=== PATIENT | male | born 1935 | race Caucasian/White ===

== ENCOUNTER → 2017-07-25 | Outpatient (CLI) | payer MEDICARE ==
[~2017-07-25] MED LIST: ACARBOSE50 MG PO; ACTOS45 MG PO; CALCIUM 600 +1 EAC7 PO; CLINDAMYCIN HC150 MG PO; ELIQUIS PO; FERROUS GLUCON324 M1 PO; FLUCONAZOLE100 MG PO; GLIPIZIDE10 MG PO; HYDROCHLOROTHIA25 MG PO; IRON PO; LOSARTAN POTAS100 MG PO; LOSARTAN POTASS50 MG PO; METFORMIN HCL850 MG PO; MINOCYCLINE HCL50 MG PO; NIASPAN750 MG PO; VITAMIN C PO; VITAMIN D2000 UNIT PO; ZETIA10 MG PO; ZYVOX600 MG PO
--- NOTE | 2017-07-25 10:48 | Diagnostic Imaging Report ---
PROCEDURE:ABDOMINAL ULTRASOUND COMPARISON:None. INDICATIONS:R/O ANEURYSM, ABDOMINAL PAIN FINDINGS: Liver: 14.9 cm in length in the right midclavicular line. Normal hepatic parenchymal echogenicity. No focal mass. Main portal vein: 1.2 cm in caliber. Hepatopedal flow. Gallbladder: Unremarkable in sonographic appearance without shadowing calculus, wall thickening, or pericholecystic fluid. Common Bile Duct: 0.2 cm in caliber. No echogenic filling defect. Sonographic Finney's sign: Reported as negative. Right kidney: 11.8 cm in length. No solid mass, echogenic calculi, or hydronephrosis. Exophytic simple cyst projects from the lateral pole and measures 5.5 x 5 x 5.6 cm. Normal parenchymal echogenicity. Left kidney: 10.5 cm in length. No solid or cystic mass, echogenic calculi, or hydronephrosis. Normal parenchymal echogenicity. Spleen: 9.7 cm in length. Pancreas: The visualized portions of the pancreas are normal. Inferior vena cava: Patent. Aorta: Poorly visualized secondary to overlying bowel gas. Ascites: None. CONCLUSION: Poor visualization of the abdominal aorta secondary to overlying bowel gas. If there is strong clinical concern for abdominal aortic aneurysm, CT angiography of the abdomen and pelvis is suggested. Benign simple right renal cyst. Dictated by: Peyman Hu M.D. on 07/25/2017 at 10:49 Electronically approved by: Peyman Hu M.D. on 07/25/2017 at 10:49
== END ==
LOC: US 08:15
DX: R10.9 Unspecified abdominal pain (principal)
CPT/HCPCS: 76700

== ENCOUNTER → 2017-08-12 | Outpatient (CLI) | payer MEDICARE ==
[~2017-08-12] MED LIST changes: +IOPAMIDOL 370 MG/ML 200 ML INFUS..BTL INJ ONE; +SODIUM CHLORIDE 0.9% 250ML 500 ML ONE; +SODIUM CHLORIDE 0.9% 50ML 50 ML ONE
[2017-08-12 10:32] LABS: CREATININE, SERUM 1.42 mg/dL (0.72-1.25)
--- NOTE | 2017-08-12 13:06 | Diagnostic Imaging Report ---
EXAM: CTA Chest Abdomen, and Pelvis WITH contrast INDICATION: COMPARISON: None. TECHNIQUE: Angiogram of the Chest, Abdomen, and Pelvis was scanned utilizing a multidetector helical scanner after administration of IV contrast. Coronal and sagittal reformations were obtained. IV CONTRAST: 100 mL Isovue-370 COMPLICATIONS: None RADIATION DOSE: Total DLP: 1851 mGy*cm Estimated effective dose: (DLP x 0.015 x size factor) mSv CTDIvol has been reviewed. It is below the limits set by the Radiation Protocol Committee (RPC). FINDINGS: VASCULAR: Aortic Annulus: 26 mm. Sinus of Valsalva: 41 mm. Ascending Aorta at level of PA: 36 mm. Mid Arch: 33 mm. Proximal Descendin mm. Mid Descendin mm. Distal Descendin mm. Other: Moderate aortic atherosclerotic changes with no dissection. Abdominal Aorta Mesenteric Segment: 24 mm. Abdominal Aorta Just Below Renal Arteries: 21 mm. Mid Infrarenal Abdominal Aorta: 20 mm. Abdominal Aortal at Bifurcation: 17 mm. Mesenteric Arteries: Celiac trunk, SMA, single right, and dual left renal arteries patent with mild to moderate atherosclerotic changes. RCIA: 14 mm. LCIA: 15 mm. Internal Iliac Arteries: Mild to moderate adverse chronic changes, and iliac, external iliac, and internal iliac arteries. Right internal iliac artery diminutive. Chest: Lower Neck: The visualized thyroid gland is grossly unremarkable with no suspicious or significant nodule identified. Heart and Great Vessels: The main pulmonary artery measure 31 mm. The cardiothoracic radio measures 14/31. No pericardial effusion. No pulmonary embolus identified. No intracardiac filling defect is present. Mild to moderate coronary artery vascular calcifications. Lymph Nodes: No suspicious adenopathy. Calcified subcarinal/parasellar Simran nodes. Lungs: Trachea and central bronchi are unremarkable. There is no pneumothorax or pleural effusion. Calcified granulomata present, largest medial aspect right lower lobe. 2 mm nodule right upper lobe series 6 image 30 and 41. Granuloma right axial image 38. Abdomen: Solid Organs: Calcified gallstones present with no evidence of inflammation. Cysts are present in the kidneys, largest right 60 mm. Splenic granulomata are present. Solid organs otherwise unremarkable. Upper GI Tract: Gastric decompression limits adequate evaluation. No small bowel obstructive changes. Lymph Nodes: No suspicious adenopathy. Other: None. Pelvis: Bladder: Unremarkable. Other: Calcified injection granulomata. Colon: Colonic diverticula scattered, with no CT evidence of diverticulitis. Appendix not inflamed. Bones: Degenerative changes spine. IMPRESSION: 1. No aortic aneurysm or dissection identified in the chest or abdomen. 2. No pulmonary and was. 3. Evidence prior granulomatous disease. 4. Diverticulosis. 5. Cholelithiasis. 6. See above for further details. Signed by: Dr. Frank Reeves MD on 08/12/2017 1:03 PM
--- NOTE | 2017-08-12 13:07 | Diagnostic Imaging Report ---
EXAM: CTA ABD/PELVIS DATE: 08/12/2017 9:48 AM INDICATION: \S\HYPERTENSION / DIABETES COMPARISON: None FINDINGS: Please see concomitant CT angiogram of the chest, abdomen, and pelvis. IMPRESSION: As above. Signed by: Dr. Frank Reeves MD on 08/12/2017 1:03 PM
== END ==
LOC: CT 09:36
DX: C61 Malignant neoplasm of prostate (principal)
CPT/HCPCS: 36415; 71275; 74174; 82565; 84520; J7050; Q9967

== ENCOUNTER → 2017-08-20 | Outpatient (CLI) | payer MEDICARE ==
[~2017-08-20] MED LIST changes: -IOPAMIDOL 370 MG/ML 200 ML INFUS..BTL INJ ONE; -SODIUM CHLORIDE 0.9% 250ML 500 ML ONE; -SODIUM CHLORIDE 0.9% 50ML 50 ML ONE
--- NOTE | 2017-08-20 10:25 | Diagnostic Imaging Report ---
Testicular ultrasound, 08/20/2017 Clinical history: Atrophy of the testicle. Right scrotal pain. Comparison: August 25, 2014 Technique: Flores scale, color Doppler and spectral Doppler ultrasound and waveform analysis of the arterial and venous system. Findings: Right: 3.6 x 1.6 x 2.5 cm Left: 3.3 x 1.6 x 2.7 cm Both testicles demonstrate normal arterial and venous waveforms. Echogenicity is symmetric. A 0.4 x 0.3 x 0.3 cm hyperechoic focus in the mid right testicle is unchanged from the comparison study. Right epididymis: 0.9 x 0.6 x 1.4 cm Left epididymis: 0.8 x 0.6 x 0.9 cm Inguinal canal vascular structures are normal. No conspicuous hydrocele or varicocele. Impression: 1. No acute abnormality. 2. Stable hyperechoic focus in the right testicle, likely benign scar. This report was generated with voice-recognition technology. Errors in drier tender naphthalene can occur. Please interpret accordingly and contact a radiologist if there are any questions regarding the report. Signed by: Dr. Luis Gonzalez M.D. on 08/20/2017 10:21 AM
--- NOTE | 2017-08-20 10:25 | Diagnostic Imaging Report ---
Testicular ultrasound, 08/20/2017 Clinical history: Atrophy of the testicle. Right scrotal pain. Comparison: August 25, 2014 Technique: Flores scale, color Doppler and spectral Doppler ultrasound and waveform analysis of the arterial and venous system. Findings: Right: 3.6 x 1.6 x 2.5 cm Left: 3.3 x 1.6 x 2.7 cm Both testicles demonstrate normal arterial and venous waveforms. Echogenicity is symmetric. A 0.4 x 0.3 x 0.3 cm hyperechoic focus in the mid right testicle is unchanged from the comparison study. Right epididymis: 0.9 x 0.6 x 1.4 cm Left epididymis: 0.8 x 0.6 x 0.9 cm Inguinal canal vascular structures are normal. No conspicuous hydrocele or varicocele. Impression: 1. No acute abnormality. 2. Stable hyperechoic focus in the right testicle, likely benign scar. This report was generated with voice-recognition technology. Errors in concaving machine operator can occur. Please interpret accordingly and contact a radiologist if there are any questions regarding the report. Signed by: Dr. Luis Gonzalez M.D. on 08/20/2017 10:21 AM
== END ==
LOC: US 08:22
PROVIDERS: ATTEND Urology
DX: N50.0 Atrophy of testis (principal)
CPT/HCPCS: 76870; 93976

== ENCOUNTER → 2018-12-03 | Outpatient (CLI) | payer MEDICARE ==
[~2018-12-03] MED LIST changes: +GADOBENATE DIMEGLUMINE 1 ML IV ONE
[2018-12-03 09:15] LABS: CREATININE, SERUM 1.44 mg/dL (0.72-1.25)
--- NOTE | 2018-12-03 16:27 | Diagnostic Imaging Report ---
EXAM: BONE and/or JOINT WHOLE BODY INDICATION: C61 Malignant neoplasm of prostate COMPARISON: Bone scan 01/05/2015 (report only, no images); MRI pelvis 11/23/2018; CT abdo/pelvis 08/12/2017 REPORT: Approximately 3 hours following intravenous administration of 26 mCi of Tc-99m MDP, delayed total body images in the anterior and posterior projections and selected spot images were obtained. A focus of moderately increased tracer activity is seen in the right skull posterior to the mastoid. Small foci of mildly increased tracer activity are seen on the left side of T9 and T10. Otherwise, distribution of tracer activity is unremarkable throughout the skeletal system. No abnormal accumulation of tracer is seen in the soft tissues or urinary tract. The kidneys are reduced in size. IMPRESSION: No convincing scan evidence of metastatic bone disease. Osteoblastic lesion in the right skull posteriorly is nonspecific and would be an unusual site for a solitary bone metastasis related to prostate cancer. The osteoblastic foci in T8 and T9 are suspect for degenerative change, although per reports of bone scan in 2013, were not present at that time. Correlation of the these findings with CT is warranted. Signed by: Dr. Gema Alonso M.D. on 12/03/2018 4:24 PM
--- NOTE | 2018-12-09 18:18 | Diagnostic Imaging Report ---
EXAMINATION: MRI of the pelvis with and without contrast. TECHNIQUE: Multiplanar, multi-sequence MR images of the pelvis were performed from below the inferior poles of the kidneys to the lesser trochanters before and after the intravenous administration of 20 cc of gadolinium. Axial and coronal T1 postcontrast images were performed. COMPARISON: CT abdomen and pelvis 08/12/2017 CLINICAL HISTORY: Malignant neoplasm of prostate, evaluate extent of cancer. Prostate biopsy performed 12/2014. Bilateral pelvic lymphadenectomy 02/2015. Photoselective vaporization of the prostate 04/2015 FINDINGS: BLADDER: Bladder is unremarkable. No focal lesions or wall thickening. PROSTATE: No definite enhancing soft tissue in the prostate bed. Postsurgical changes consistent with prior vaporization. GI TRACT: Rectum and mesorectum are unremarkable. Visualized bowel shows no dilation or evidence of obstruction. PERITONEUM/RETROPERITONEUM: No free fluid. LYMPH NODES: No pelvic or inguinal adenopathy. BONES: No abnormal bone marrow signal. No focal bony lesions. SOFT TISSUES: Soft tissues are unremarkable. IMPRESSION: 1. No evidence of local, recurrent or metastatic disease in the pelvis. No adenopathy. Signed by: Dr. Lito Blackwood M.D. on 12/09/2018 6:15 PM
== END ==
LOC: MRI 08:16
PROVIDERS: ATTEND Urology
DX: C61 Malignant neoplasm of prostate (principal)
CPT/HCPCS: 36415; 72197; 78306; 82565; 84520; A9503; A9577

== ENCOUNTER 2019-04-01 22:56 | Emergency (ER) | payer MEDICARE ==
[~2019-04-01] VITALS: Ht 185.4 cm; Wt 96.2 kg
[~2019-04-01 22:56] MED LIST changes: -GADOBENATE DIMEGLUMINE 1 ML IV ONE
--- OUTSIDE RECORDS SUMMARY | 2019-04-01 22:59 | XMS REPORT ---
Author Author [facility] Address Unknown Phone Unavailable Care Team Providers Care Customer Service Receptionist Name Role Phone CHAR HUMPHRIES Unavailable Unavailable NED FARLEY Unavailable Unavailable Problems This patient has no known problems. Allergies, Adverse Reactions, Alerts This patient has no known allergies or adverse reactions. Medications This patient has no known medications. Results Test Description Test Time Test Comments Text Results Atomic Results Result Comments MRI PELVIS WOW 2018-12-03 17:42:00 [place] [address] Patient Name: HECTOR ARIAS SR MR #: [id number] : 1935 Age/Sex: 83/M Req #: [id number] Adm Physician: Ordered by: CHAR HUMPHRIES MD Report #: [id number] Location: MRI Room/Bed: Procedure: [id number] MRI/MRI PELVIS WOW Exam Date: Exam Time: REPORT STATUS: Signed EXAMINATION: MRI of the pelvis with and without contrast. TECHNIQUE: Multiplanar, multi-sequence MR images of the pelvis were performed from below the inferior poles of the kidneys to the lesser trochanters before and after the intravenous administration of 20 cc of gadolinium. Axial and coronal T1 postcontrast images were performed. COMPARISON: CT abdomen and pelvis 08/12/2017 CLINICAL HISTORY: Malignant neoplasm of prostate, evaluate extent of cancer. Prostate biopsy performed 12/2014. Bilateral pelvic lymphadenectomy 02/2015. Photoselective vaporization of the prostate 04/2015 FINDINGS: BLADDER: Bladder is unremarkable. No focal lesions or wall thickening. PROSTATE: No definite enhancing soft tissue in the prostate bed. Postsurgical changes consistent with prior vaporization. GI TRACT: Rectum and mesorectum are unremarkable. Visualized bowel shows no dilation or evidence of obstruction. PERITONEUM/RETROPERITONEUM: No free fluid. LYMPH NODES: No pelvic or inguinal adenopathy. BONES: No abnormal bone marrow signal. No focal bony lesions. SOFT TISSUES: Soft tissues are unremarkable. IMPRESSION: 1. No evidence of local, recurrent or metastatic disease in the pelvis. No adenopathy. Signed by: Dr. Ramona Blackwood M.D. on 12/09/2018 6:15 PM Dictated By: RAMONA BLACKWOOD MD 14 Transcribed By: JOSE G on 12/09/181814 COPY TO: CHAR HUMPHRIES MD BONE and/or JOINT WHOLE BODY 2018-12-03 16:12:00 [place] [address] Patient Name: HECTOR ARIAS SR MR #: [id number] : 1935 Age/Sex: 83/M Req #: [id number] [facility] Physician: Ordered by: CHAR HUMPHRIES MD Report #: [id number] Location: MRI Room/Bed: Procedure: [id number] NM/BONE and/or JOINT WHOLE BODY Exam Date: 12/03/18 Exam Time: 1030 REPORT STATUS: Signed EXAM: BONE and/or JOINT WHOLE BODY INDICATION: C61 Malignant neoplasm of prostate COMPARISON: Bone scan 01/05/2015 (report only, no images); MRI pelvis 11/23/2018; CT abdo/pelvis 08/12/2017 REPORT: Approximately 3 hours following intravenous administration of 26 mCi of Tc-99m MDP, delayed total body images in the anterior and posterior projections and selected spot images were obtained. A focus of moderately increased tracer activity is seen in the right skull posterior to the mastoid. Small foci of mildly increased tracer activity are seen on the left side of T9 and T10. Otherwise, distribution of tracer activity is unremarkable throughout the skeletal system. No abnormal accumulation of tracer is seen in the soft tissues or urinary tract. The kidneys are reduced in size. IMPRESSION: No convincing scan evidence of metastatic bone disease. Osteoblastic lesion in the right skull posteriorly is nonspecific and would be an unusual site for a solitary bone metastasis related to prostate cancer. The osteoblastic foci in T8 and T9 are suspect for degenerative change, although per reports of bone scan in 2013, were not present at that time. Correlation of the these findings with CT is warranted. Signed by: Dr. Bro Alonso M.D. on 12/03/2018 4:24 PM Dictated By: BRO ALONSO MD 1624 Transcribed By: JOSE G on 12/03/18 1623 COPY TO: CHAR HUMPHRIES MD TESTICULAR DOPPLER LTD [place] [address] Patient Name: HECTOR ARIAS SR MR #: [id number] : 1935 Age/Sex: 82/M Acct #: [id number] Req #: [id number] Adm Physician: Ordered by: CHAR HUMPHRIES MD Report #: [id number] Location: [place] Room/Bed: Procedure: [id number] US/US TESTICULAR DOPPLER LTD Exam Date: 04/04/18 Exam Time: 0908 REPORT STATUS: Signed Testicular ultrasound, 08/20/2017 Clinical history: Atrophy of the testicle. Right scrotal pain. Comparison: August 25, 2014 Technique: Flores scale, color Doppler and spectral Doppler ultrasound and waveform analysis of the arterial and venous system. Findings: Right: 3.6 x 1.6 x 2.5 cm Left: 3.3 x 1.6 x 2.7 cm Both testicles demonstrate normal arterial and venous waveforms. Echogenicity is symmetric. A 0.4 x 0.3 x 0.3 cm hyperechoic focus in the mid right testicle is unchanged from the comparison study. Right epididymis: 0.9 x 0.6 x 1.4 cm Left epididymis: 0.8 x 0.6 x 0.9 cm Inguinal canal vascular structures are normal. No conspicuous hydrocele or varicocele. Impression: 1. No acute abnormality. 2. Stable hyperechoic focus in the right testicle, likely benign scar. This report was generated with voice-recognition technology. Errors in commutator undercutter can occur. Please interpret accordingly and contact a radiologist if there are any questions regarding the report. Signed by: Dr. Aissatou Gonzalez M.D. on 08/20/2017 10:21 AM Dictated By: AISSATOU GONZALEZ MD 1021 Transcribed By: JOSE G on 08/20/17 1021 COPY TO: CHAR HUMPHRIES MD TESTICULAR [place] [address] Patient Name: HECTOR ARIAS SR MR #: [id number] : 1935 Age/Sex: 82/M Req #: [id number] Adm Physician: Ordered by: CHAR HUMPHRIES MD Report #: [id number] Location: US Room/Bed: Procedure: [id number] US/US TESTICULAR Exam Date: 08/20/17 Exam Time: 0908 REPORT STATUS: Signed Testicular ultrasound, 08/20/2017 Clinical history: Atrophy of the testicle. Right scrotal pain. Comparison: August 25, 2014 Technique: Flores scale, color Doppler and spectral Doppler ultrasound and waveform analysis of the arterial and venous system. Findings: Right: 3.6 x 1.6 x 2.5 cm Left: 3.3 x 1.6 x 2.7 cm Both testicles demonstrate normal arterial and venous waveforms. Echogenicity is symmetric. A 0.4 x 0.3 x 0.3 cm hyperechoic focus in the mid right testicle is unchanged from the comparison study. Right epididymis: 0.9 x 0.6 x 1.4 cm Left epididymis: 0.8 x 0.6 x 0.9 cm Inguinal canal vascular structures are normal. No conspicuous hydrocele or varicocele. Impression: 1. No acute abnormality. 2. Stable hyperechoic focus in the right testicle, likely benign scar. This report was generated with voice-recognition technology. Errors in commutator undercutter can occur. Please interpret accordingly and contact a radiologist if there are any questions regarding the report. Signed by: Dr. Aissatou Gonzalez M.D. on 08/20/2017 10:21 AM Dictated By: AISSATOU GONZALEZ MD 1021 Transcribed By: JOSE G on 08/20/17 1021 COPY TO: CHAR HUMPHRIES MD CTA CHEST [place] [address] Patient Name: HECTOR ARIAS SR MR #: [id number] : 1935 Age/Sex: 82/M Req #: [id number] Adm Physician: Ordered by: NED FARLEY MD Report #: [id number] Location: [place] Room/Bed: Procedure: [id number] CT/CTA CHEST Exam Date: 08/12/17 Exam Time: 1123 REPORT STATUS: Signed EXAM: CTA Chest Abdomen, and Pelvis WITH contrast INDICATION: COMPARISON: None. TECHNIQUE: Angiogram of the Chest, Abdomen, and Pelvis was scanned utilizing a multidetector helical scanner after administration of IV contrast. Coronal and sagittal reformations were obtained. IV CONTRAST: 100 mL Isovue-370 COMPLICATIONS: None RADIATION DOSE: Total DLP: 1851 mGy*cm Estimated effective dose: (DLP x 0.015 x size factor) mSv CTDIvol has been reviewed. It is below the limits set by the Radiation Protocol Committee (RPC). FINDINGS: VASCULAR: Aortic Annulus: 26 mm. Sinus of Valsalva: 41 mm. Ascending Aorta at level of PA: 36 mm. Mid Arch: 33 mm. Proximal Descendin mm. Mid Descendin mm. Distal Descendin mm. Other: Moderate aortic atherosclerotic changes with no dissection. Abdominal Aorta Mesenteric Segment: 24 mm. Abdominal Aorta Just Below Renal Arteries: 21 mm. Mid Infrarenal Abdominal Aorta: 20 mm. Abdominal Aortal at Bifurcation: 17 mm. Mesenteric Arteries: Celiac trunk, SMA, single right, and dual left renal arteries patent with mild to moderate atherosclerotic changes. RCIA: 14 mm. LCIA: 15 mm. Internal Iliac Arteries: Mild to moderate adverse chronic changes, and iliac, external iliac, and internal iliac arteries. Right internal iliac artery diminutive. Chest: Lower Neck: The visualized thyroid gland is grossly unremarkable with no suspicious or significant nodule identified. Heart and Great Vessels: The main pulmonary artery measure 31 mm. The cardiothoracic radio measures 14/31. No pericardial effusion. No pulmonary embolus identified. No intracardiac filling defect is present. Mild to moderate coronary artery vascular calcifications. Lymph Nodes: No suspicious adenopathy. Calcified subcarinal/parasellar Simran nodes. Lungs: Trachea and central bronchi are unremarkable. There is no pneumothorax or pleural effusion. Calcified granulomata present, largest medial aspect right lower lobe. 2 mm nodule right upper lobe series 6 image 30 and 41. Granuloma right axial image 38. Abdomen: Solid Orga ns: Calcified gallstones present with no evidence of inflammation. Cysts are present in the kidneys, largest right 60 mm. Splenic granulomata are present. Solid organs otherwise unremarkable. Upper GI Tract: Gastric decompression limits adequate evaluation. No small bowel obstructive changes. Lymph Nodes: No suspicious adenopathy. Other: None. Pelvis: Bladder: Unremarkable. Other: Calcified injection granulomata. Colon: Colonic diverticula scattered, with no CT evidence of diverticulitis. Appendix not inflamed. Bones: Degenerative changes spine. IMPRESSION: 1. No aortic aneurysm or dissection identified in the chest or abdomen. 2. No pulmonary and was. 3. Evidence prior granulomatous disease. 4. Diverticulosis. 5. Cholelithiasis. 6. See above for further details. Signed by: Dr. Frank Reeves MD on 08/12/2017 1:03 PM Dictated By: FRANK REEVES MD 1303 Transcribed By: JOSE G on 08/12/17 1303 COPY TO: NED FARLEY MD CTA ABD/PELVIS [place] [address] Patient Name: HECTOR ARIAS SR MR #: [id number] : 1935 Age/Sex: 82/M Req #: [id number] Adm Physician: Ordered by: NED FARLEY MD Report #: [id number] Location: CT Room/Bed: Procedure: [id number] CT/CTA ABD/PELVIS Exam Date: 08/12/17 Exam Time: 1123 REPORT STATUS: Signed EXAM: CTA ABD/PELVIS DATE: 08/12/2017 9:48 AM INDICATION: COMPARISON: None FINDINGS: Please see concomitant CT angiogram of the chest, abdomen, and pelvis. IMPRESSION: As above. Signed by: Dr. Frank Reeves MD on 08/12/2017 1:03 PM Dictated By: FRANK REEVES MD 130 Transcribed By: JOSE G on 08/12/17 130 COPY TO: NED FARLEY MD US ABDOMEN COMPLETE [place] [address] Patient Name: HECTOR ARIAS SR MR #: [id number] : 1935 Age/Sex: 82/M Acct #: [id number] Req #: [id number] Adm Physician: Ordered by: NED FARLEY MD Report #: [id number] Location: US Room/Bed: Procedure: [id number] US/US ABDOMEN COMPLETE Exam Date: Exam Time: REPORT STATUS: Signed PROCEDURE: ABDOMINAL ULTRASOUND COMPARISON: None. INDICATIONS: R/O ANEURYSM, ABDOMINAL PAIN FINDINGS: Liver: 14.9 cm in length in the right midclavicular line. Normal hepatic parenchymal echogenicity. No focal mass. Main portal vein: 1.2 cm in caliber. Hepatopedal flow. Gallbladder: Unremarkable in sonographic appearance without shadowing calculus, wall thickening, or pericholecystic fluid. Common Bile Duct: 0.2 cm in caliber. No echogenic filling defect. Sonographic Finney's sign: Reported as negative. Right kidney: 11.8 cm in length. No solid mass, echogenic calculi, or hydronephrosis. Exophytic simple cyst projects from the lateral pole and measures 5.5 x 5 x 5.6 cm. Normal parenchymal echogenicity. Left kidney: 10.5 cm in length. No solid or cystic mass, echogenic calculi, or hydronephrosis. Normal parenchymal echogenicity. Spleen: 9.7 cm in length. Pancreas: The visualized portions of the pancreas are normal. Inferior vena cava: Patent. Aorta: Poorly visualized secondary to overlying bowel gas. Ascites: None. CONCLUSION: Poor visualization of the abdominal aorta secondary to overlying bowel gas. If there is strong clinical concern for abdominal aortic aneurysm, CT angiography of the abdomen and pelvis is suggested. Benign simple right renal cyst. Dictated by: True Perez M.D. on 07/25/2017 at 10:49 Electronically approved by: True Perez M.D. on 07/25/2017 at 10:49 Dictated By: TRUE PEREZ MD 1049 Transcribed By: ELIZABETH on 07/25/17 1049 COPY TO: NED FARLEY MD
[2019-04-01 23:30] VITALS: BP 170/61
== END 2019-04-01 23:39 | disposition home or self-care (01) ==
LOC: ER 22:56
DX: Z48.01 Encounter for change or removal of surgical wound dressing (principal); Z85.828 Personal history of other malignant neoplasm of skin; Z85.46 Personal history of malignant neoplasm of prostate
CPT/HCPCS: 99282

== ENCOUNTER 2019-09-23 09:26 | Emergency (ER) | payer MEDICARE, OTHER ==
[~2019-09-23] VITALS: Ht 185.4 cm; Wt 96.2 kg
[2019-09-23] MEDS ORDERED: SILVER NITRATE SWABS ONE (10:15)
[2019-09-23] MEDS ORDERED: SILVER NITRATE SWABS TOP ONE (10:15)
== END 2019-09-23 10:30 | disposition home or self-care (01) ==
LOC: ER 09:26
DX: S91.105A Unspecified open wound of left lesser toe(s) without damage to nail, initial encounter (principal); W45.8XXA Other foreign body or object entering through skin, initial encounter; Y93.89 Activity, other specified; Y92.008 Other place in unspecified non-institutional (private) residence as the place of occurrence of the external cause
CPT/HCPCS: 99282

== ENCOUNTER → 2019-11-26 | Outpatient (CLI) | payer MEDICARE ==
--- NOTE | 2019-11-26 10:25 | Diagnostic Imaging Report ---
Ultrasound testicle HISTORY: Spermatocele of epididymis TECHNIQUE: Grayscale, color flow and Doppler interrogation of the scrotum and bilateral testicles. High frequency linear transducer was used. COMPARISON: 08/20/2017. Number of images submitted: Multiple grayscale color flow and Doppler. FINDINGS: Right testicle: Measures 3.6 x 1.6 x 2.3 cm. There is no focal mass or cyst. There is intact arterial and venous flow. The epididymis measures 0.7 x 0.7 x 0.7 cm. There is no cyst. There is no hydrocele. There is no varicocele. There is a right testicular scar that measures 0.3 x 0.2 x 0.3 cm and is unchanged. Left testicle: Measures 3.7 x 1.5 x 2.0 cm. There is no focal mass or cyst. There is intact arterial and venous flow. The epididymis measures 1.0 x 0.5 x 0.8 cm. There is no cyst. There is no hydrocele. There is no varicocele. IMPRESSION: No significant abnormality. Stable right testicular scar. No significant change. Signed by: Quintin Walker MD on 11/26/2019 10:21 AM
== END ==
LOC: US 06:48
PROVIDERS: ATTEND Urology
DX: N43.40 Spermatocele of epididymis, unspecified (principal)
CPT/HCPCS: 76870; 93976

== ENCOUNTER 2020-05-05 05:59 | Observation (INO) | payer MEDICARE ==
[~2020-05-05] VITALS: Ht 188 cm; Wt 97.5 kg
[2020-05-05] MEDS ORDERED: ASPIRIN 81 MG CHEW TAB PO STA (06:14)
[2020-05-05] MEDS ORDERED: PANTOPRAZOLE 40 MG 10ML VIAL IV STA (06:14)
[2020-05-05] MEDS ORDERED: NITROGLYCERIN 2% OINT 1 GM PKT TOP ONE (06:15)
[2020-05-05 06:29] LABS: BASOPHILS % 1.1 % (0.0-1.0); EOSINOPHILS # (AUTO) 0.1 (0.0-0.4); EOSINOPHILS % 3.8 % (0.0-6.0); HEMOGLOBIN 8.4 g/dL (14.0-18.0); LYMPHOCYTES # (AUTO) 0.9 (1.0-3.2); LYMPHOCYTES % 23.4 % (18.0-39.1); MEAN CORPUSCULAR HEMOGLOBIN 34.6 pg (28-32); MEAN CORPUSCULAR HGB CONC 32.3 g/dL (31-35); MONOCYTES # (AUTO) 0.4 (0.2-0.8); MONOCYTES % 11.1 % (4.4-11.3); NEUTROPHILS # (AUTO) 2.2 (2.1-6.9); NEUTROPHILS % 59.8 % (38.7-80.0); PLATELET COUNT 222 x10e3/uL (140-360); RED BLOOD COUNT 2.43 x10e6/uL (4.3-5.7); RED CELL DISTRIBUTION WIDTH 13.7 % (11.7-14.4)
[2020-05-05 06:42] LABS: INR 0.89; PROTHROMBIN TIME 12.5 seconds (11.9-14.5)
[2020-05-05 06:43] LABS: PARTIAL THROMBOPLASTIN TIME 29.1 seconds (23.8-35.5)
[2020-05-05 06:52] LABS: ALBUMIN 3.8 g/dL (3.5-5.0); ALBUMIN/GLOBULIN RATIO 1.5 (0.8-2.0); ANION GAP 14.2 mmol/L (8-16); CREATININE, SERUM 1.36 mg/dL (0.72-1.25); POTASSIUM 4.2 mmol/L (3.5-5.1)
[2020-05-05] MEDS: ASPIRIN 81 MG ENTERIC COATED PO SCH ×2 (07:25→13:40)
[2020-05-05] MEDS ORDERED: MORPHINE SULFATE 2 MG/ML SYR 1ML IV PRN (07:30)
[2020-05-05] MEDS ORDERED: ONDANSETRON HCL INJ 2MG/ML 2ML 2 MG/ML VIAL IV PRN (07:30)
[2020-05-05] MEDS ORDERED: NITROGLYCERIN 0.4 MG SUBL SL PRN (07:30)
[2020-05-05] MEDS ORDERED: PIOGLITAZONE HC45 MG PO (08:19)
[2020-05-05] MEDS ORDERED: FUROSEMIDE40 MG PO (08:19)
[2020-05-05 09:00] VITALS: BP 186/49
[2020-05-05 09:25] LABS: PLATELET ESTIMATE ADEQUATE; PLATELET MORPHOLOGY COMMENT NORMAL
[2020-05-05 09:27] LABS: RBC MORPHOLOGY COMMENT NORMAL
[2020-05-05 09:45] VITALS: BP 186/49
[2020-05-05 09:52] VITALS: BP 170/55
[2020-05-05] MEDS ORDERED: XTANDI40 MG PO (11:10)
[2020-05-05 12:48] LABS: CREATINE KINASE MB 4.8 ng/mL (0-5.0)
[2020-05-05 12:52] VITALS: BP 176/50
[2020-05-05] MEDS ORDERED: PIOGLITAZONE HC15 MG PO (13:31)
[2020-05-05] MEDS ORDERED: GLIPIZIDE5 MG PO (13:31)
[2020-05-05] MEDS ORDERED: ASPIRIN EC81 MG PO (13:31)
[2020-05-05] MEDS ORDERED: POTASSIUM CHLO10 ME1 PO (13:33)
[2020-05-05] MEDS: FAMOTIDINE 20 MG/2 ML VIAL IV SCH ×2 (13:40→20:21)
[2020-05-05 16:47] VITALS: BP 119/50
[2020-05-05] MEDS: AMLODIPINE BESYLATE 5 MG TAB PO SCH (17:35)
[2020-05-05 18:16] LABS: CREATINE KINASE MB 3.9 ng/mL (0-5.0)
[2020-05-05 20:25] VITALS: BP 151/51
[2020-05-05] MEDS ORDERED: XTANDI PO SCH (21:00)
[2020-05-06] VITALS: BP 147/49
[2020-05-06 00:41] LABS: CREATINE KINASE MB 3.5 ng/mL (0-5.0)
[2020-05-06 06:02] VITALS: BP 168/58
[2020-05-06] MEDS ORDERED: GLIPIZIDE 5 MG TAB PO SCH (07:30)
[2020-05-06 07:41] LABS: BASOPHILS % 1.1 % (0.0-1.0); EOSINOPHILS # (AUTO) 0.1 (0.0-0.4); EOSINOPHILS % 3.1 % (0.0-6.0); HEMATOCRIT 24.1 % (38.2-49.6); HEMOGLOBIN 7.7 g/dL (14.0-18.0); LYMPHOCYTES # (AUTO) 0.6 (1.0-3.2); MEAN CORPUSCULAR HEMOGLOBIN 34.7 pg (28-32); MEAN CORPUSCULAR VOLUME 108.6 fL (81-99); MONOCYTES # (AUTO) 0.4 (0.2-0.8); MONOCYTES % 10.9 % (4.4-11.3); NEUTROPHILS # (AUTO) 2.4 (2.1-6.9); NEUTROPHILS % 68.3 % (38.7-80.0); PLATELET COUNT 195 x10e3/uL (140-360); RED BLOOD COUNT 2.22 x10e6/uL (4.3-5.7); RED CELL DISTRIBUTION WIDTH 13.7 % (11.7-14.4)
[2020-05-06 08:01] LABS: ALBUMIN 3.5 g/dL (3.5-5.0); ALBUMIN/GLOBULIN RATIO 1.6 (0.8-2.0); ANION GAP 14.1 mmol/L (8-16); CALCIUM 8.8 mg/dL (8.4-10.2); CHOL/HDL RATIO 2.6 (3.9-4.7); CREATININE, SERUM 1.2 mg/dL (0.72-1.25); POTASSIUM 4.1 mmol/L (3.5-5.1)
[2020-05-06 08:04] VITALS: BP 168/58
[2020-05-06] MEDS: FAMOTIDINE 20 MG/2 ML VIAL IV SCH (08:31)
[2020-05-06] MEDS: AMLODIPINE BESYLATE 5 MG TAB PO SCH (08:32)
[2020-05-06 08:46] VITALS: BP 146/89
[2020-05-06] MEDS ORDERED: POTASSIUM CHLORIDE 10MEQ EA PO SCH (09:00)
[2020-05-06] MEDS ORDERED: PIOGLITAZONE HCL 15 MG TAB PO SCH (09:00)
[2020-05-06] MEDS ORDERED: NON-FORMULARY MEDICATION (Losartan Potassium 50 MG) PO SCH (09:00)
[2020-05-06] MEDS ORDERED: FUROSEMIDE 40 MG TAB PO SCH (09:00)
[2020-05-06] MEDS ORDERED: ASPIRIN 81 MG ENTERIC COATED PO SCH (09:00)
[2020-05-06] MEDS ORDERED: LOSARTAN POTASSIUM 25 MG TAB PO SCH (09:00)
[2020-05-06 12:18] VITALS: BP 137/54
== END 2020-05-06 13:51 | disposition home or self-care (01) ==
LOC: ER 06:16 → ERHOLD 07:17 → MED/SURG2 08:28
DX: R07.89 Other chest pain (principal); I13.0 Hypertensive heart and chronic kidney disease with heart failure and stage 1 through stage 4 chronic kidney disease, or unspecified chronic kidney disease; E11.22 Type 2 diabetes mellitus with diabetic chronic kidney disease; N18.9 Chronic kidney disease, unspecified; I50.9 Heart failure, unspecified; E78.5 Hyperlipidemia, unspecified; I48.0 Paroxysmal atrial fibrillation; Z85.46 Personal history of malignant neoplasm of prostate; Z20.828 Contact with and (suspected) exposure to other viral communicable diseases; Z79.82 Long term (current) use of aspirin; Z79.84 Long term (current) use of oral hypoglycemic drugs
CPT/HCPCS: 36415 ×2; 71045; 80053 ×2; 80061; 82550 ×2; 82553 ×2; 82948 ×2; 83735; 83880; 84484 ×2; 85025 ×2; 85610; 85730; 93005; 99284; C9113; G0378 ×2; U0002

== ENCOUNTER → 2020-06-12 | Outpatient (CLI) | payer MEDICARE ==
[~2020-06-12] MED LIST changes: +ASPIRIN EC81 MG PO; +FUROSEMIDE40 MG PO; +GLIPIZIDE5 MG PO; +PIOGLITAZONE HC15 MG PO; +PIOGLITAZONE HC45 MG PO; +POTASSIUM CHLO10 ME1 PO; +XTANDI40 MG PO
== END ==
LOC: NM 08:32
PROVIDERS: ATTEND Radiology Radiation Oncology
DX: C79.51 Secondary malignant neoplasm of bone (principal)
CPT/HCPCS: 78306; A9503; A9570

== ENCOUNTER → 2021-12-13 | Outpatient (CLI) | payer MEDICARE | LOC: RAD 14:55 | PROVIDERS: ATTEND Family Medicine | DX: R60.0 Localized edema (principal); M79.605 Pain in left leg; M79.604 Pain in right leg | CPT/HCPCS: 93970 ==

== ENCOUNTER 2022-09-09 10:13 | Emergency (ER) | payer MEDICARE ==
[~2022-09-09] VITALS: Ht 188 cm; Wt 97.5 kg
== END 2022-09-09 10:52 | disposition home or self-care (01) ==
LOC: ER 10:19
DX: S80.821A Blister (nonthermal), right lower leg, initial encounter (principal); I12.9 Hypertensive chronic kidney disease with stage 1 through stage 4 chronic kidney disease, or unspecified chronic kidney disease; E11.22 Type 2 diabetes mellitus with diabetic chronic kidney disease; N18.9 Chronic kidney disease, unspecified; I48.91 Unspecified atrial fibrillation; Z86.73 Personal history of transient ischemic attack (TIA), and cerebral infarction without residual deficits; Z85.46 Personal history of malignant neoplasm of prostate
CPT/HCPCS: 99282